=== PATIENT | male | born 1955 | race African-American/Black ===

== ENCOUNTER 2021-07-06 10:19 | Inpatient (IN) | payer MEDICARE, BC ==
[~2021-07-06] VITALS: Ht 188 cm; Wt 79.0 kg
[2021-07-06] MEDS ORDERED: PIPERACILLIN/TAZ 3.375G PREMIX 50 ML IV ONE (10:30)
[2021-07-06] MEDS ORDERED: SODIUM CHLORIDE 0.9% 1000ML BAG (SEPSIS BOLUS) IV ONE (10:30)
[2021-07-06] MEDS ORDERED: DEXTROSE 50% WATER 50ML SYRINGE IV ONE (11:15)
[2021-07-06 11:28] LABS: MEAN CORPUSCULAR HEMOGLOBIN 23.3 pg (28.0-32.0); MEAN CORPUSCULAR VOLUME 67.4 fL (80.0-94.0); PLATELET 187 x1000/uL (130-400); RED BLOOD CELL COUNT 2.88 mill/uL (4.7-6.1)
[2021-07-06 11:29] LABS: CHLORIDE 103 mEq/L (98-107)
[2021-07-06 11:33] LABS: INR 1.2; PROTHROMBIN TIME 12.3 sec (9.6-11.0)
[2021-07-06 11:37] LABS: CREATINE KINASE 303 IU/L (39-308)
[2021-07-06 11:41] LABS: HEMATOCRIT. 19.4 % (42.0-52.0); HEMOGLOBIN. 6.7 g/dL (14.0-18.0)
[2021-07-06 12:17] LABS: NUCLEATED RED BLOOD CELLS 5 /100 WBC; PLATELET ESTIMATE NORMAL
[2021-07-06 12:42] LABS: CLARITY URINE TURBID (CLEAR); KETONES URINE TRACE (NEGATIVE); LEUKOCYTE ESTERASE URINE 2+ (NEGATIVE); NITRITE URINE NEGATIVE (NEGATIVE); OCCULT BLOOD URINE 3+ (NEGATIVE); PROTEIN URINE 4+ (NEGATIVE); SPECIFIC GRAVITY URINE 1.014 (1.005-1.030)
[2021-07-06] MEDS ORDERED: ACETAMINOPHEN 325MG SUPP PR ONE (12:45)
[2021-07-06 12:46] LABS: COLOR URINE BROWN (YELLOW)
[2021-07-06] MEDS ORDERED: SODIUM CHLORIDE 0.9% 1,000 ML IV ONE (14:15)
[2021-07-06] MEDS ORDERED: ACETAMINOPHEN 650MG SUPP PR PRN (15:30)
[2021-07-06] MEDS ORDERED: DIPHENHYDRAMINE 50MG/ML VIAL IV PRN (15:30)
[2021-07-06] MEDS ORDERED: IPRATROPIUM/ALBUTEROL 0.5-3(2.5)MG/3ML NEB NEB PRN (15:30)
[2021-07-06] MEDS ORDERED: PHENYLEPHRINE 100 MG in DEXT 5% WATER 240 ML IV PRN (15:30)
[2021-07-06] MEDS ORDERED: LORAZEPAM 2MG/ML CPJ IV PRN (15:30)
[2021-07-06] MEDS ORDERED: ONDANSETRON HCL 4MG/2ML INJ IV PRN (15:30)
[2021-07-06] MEDS ORDERED: FAMOTIDINE 20MG/2ML VIAL IV SCH (16:00)
[2021-07-06 16:11] LABS: BG BASE EXCESS -6.4 mmol/L (-2.0-2.0); BG CARBOXYHEMOGLOBIN 1.2 % (0.5-1.5); BG DEOXYHEMOGLOBIN 3.3 % (0.0-5.0); BG FRACTION INSPIRED OXYGEN 21; BG HCO3 ACT 17.1 mmol/L (22.0-26.0); BG METHEMOGLOBIN 0.3 % (0.0-1.5); BG OXYGEN SATURATION 96.6 % (92.0-98.5); BG OXYHEMOGLOBIN 95.2 % (94.0-97.0); BG PCO2 26.2 mmHg (35.0-45.0); BG PH 7.433 (7.350-7.450); BG PO2 109.6 mmHg (75.0-100.0); BG TOTAL HEMOGLOBIN 6.7 g/dL (12.0-18.0); BG VENT MODE ROOM AIR
[2021-07-06] MEDS: DEXT 5%/0.45% NACL 1000ML 1,000 ML IV SCH (16:40)
[2021-07-06 16:48] LABS: TOTAL IRON BINDING CAPACITY 142 ug/dL (250-450)
[2021-07-06] MEDS ORDERED: VANCOMYCIN 1500MG in DEXTROSE 5% WATER 250ML IV NR (17:00)
[2021-07-06 17:11] LABS: CARCINO EMBRYONIC ANTIGEN 1.8 ng/ml; FERRITIN 1222 ng/mL (22-322)
[2021-07-06] MEDS: PANTOPRAZOLE SODIUM 40 MG/VIAL IV SCH (17:16)
[2021-07-06 17:29] LABS: VITAMIN B12 SERUM > 2000.0 pg/mL (211-911)
[2021-07-06] MEDS: BLOOD SUGAR DIAGNOSTIC STRIP TEST SCH ×2 (17:30→21:16)
[2021-07-06] MEDS ORDERED: PIPERACILLIN/TAZOBACTAM 3.375 G in DEXTROSE 5% WATER 50 ML IV SCH (21:00)
[2021-07-07] VITALS (53 sets, daily range): BP systolic 89–133; BP diastolic 56–88
[2021-07-07 00:36] LABS: HEMATOCRIT 24.1 % (42.0-52.0); HEMOGLOBIN 8.1 g/dL (14.0-18.0)
[2021-07-07 01:00] LABS: CREATINE KINASE 442 IU/L (39-308)
[2021-07-07 01:03] LABS: CREATINE KINASE MB FRACTION 3.4 ng/mL (0.5-3.6)
[2021-07-07] MEDS: DEXT 5%/0.45% NACL 1000ML 1,000 ML IV SCH ×3 (02:06→22:36)
[2021-07-07 05:41] LABS: HEMATOCRIT. 24.8 % (42.0-52.0); HEMOGLOBIN. 8.3 g/dL (14.0-18.0); MEAN CORPUSCULAR HEMOGLOBIN 25.5 pg (28.0-32.0); MEAN CORPUSCULAR VOLUME 76.2 fL (80.0-94.0); MEAN PLATELET VOLUME 8.7 fl (7.4-10.4); PLATELET 91 x1000/uL (130-400); RED BLOOD CELL COUNT 3.25 mill/uL (4.7-6.1); RED CELL DISTRIBUTION WIDTH 22.5 % (11.6-14.6)
[2021-07-07 05:49] LABS: CHLORIDE 112 mEq/L (98-107)
[2021-07-07 05:55] LABS: LDL CHOLESTEROL 34 mg/dL (5-100)
[2021-07-07 05:57] LABS: CREATINE KINASE 279 IU/L (39-308); CREATINE KINASE MB FRACTION 1.3 ng/mL (0.5-3.6); HDL CHOLESTEROL 8 mg/dL (40-59); T4 FREE 0.86 ng/dL (0.76-1.46)
[2021-07-07] MEDS ORDERED: NOREPINEPHRINE 8MG/250ML PMX 250 ML IV PRN (06:15)
[2021-07-07] MEDS: BLOOD SUGAR DIAGNOSTIC STRIP TEST SCH ×4 (06:34→20:43)
[2021-07-07 08:02] LABS: PLATELET ESTIMATE DECREASED
[2021-07-07] MEDS: PANTOPRAZOLE SODIUM 40 MG/VIAL IV SCH (09:10)
[2021-07-07] MEDS ORDERED: NOREPINEPHRINE 8 MG in DEXTROSE 5% WATER 250 ML IV PRN (09:45)
[2021-07-07] MEDS ORDERED: NALOXONE HCL 0.4MG/ML VIAL IV PRN (09:45)
[2021-07-07] MEDS: MORPHINE SULFATE 2 MG/ML CPJ (NOT FOR IM USE) IV PRN (10:13)
[2021-07-07] MEDS: PHENYLEPHRINE 100 MG in DEXT 5% WATER 240 ML IV PRN ×2 (10:35→22:06)
[2021-07-07] MEDS ORDERED: PIPERACILLIN/TAZOBACTAM 3.375 G in DEXTROSE 5% WATER 50 ML IV SCH (11:00)
[2021-07-07] MEDS ORDERED: DIGOXIN 500MCG/2ML AMP IV NR (12:00)
[2021-07-07 15:53] LABS: HEMATOCRIT 31.4 % (42.0-52.0); HEMOGLOBIN 9.9 g/dL (14.0-18.0)
[2021-07-07] MEDS: PIPERACILLIN/TAZOBACTAM 3.375G in DEXT 5% WATER 50ML IV SCH ×2 (16:29→22:06)
[2021-07-07] MEDS ORDERED: VANCOMYCIN 750 MG PREMIX 150 ML IV SCH ×2 (17:00)
[2021-07-08] VITALS (93 sets, daily range): BP systolic 106–137; BP diastolic 55–104
[2021-07-08 00:37] LABS: HEMATOCRIT 26.4 % (42.0-52.0); HEMOGLOBIN 8.9 g/dL (14.0-18.0)
[2021-07-08] MEDS: PIPERACILLIN/TAZOBACTAM 3.375G in DEXT 5% WATER 50ML IV SCH ×3 (05:01→23:08)
[2021-07-08] MEDS: BLOOD SUGAR DIAGNOSTIC STRIP TEST SCH ×4 (05:04→21:55)
[2021-07-08 05:48] LABS: CHLORIDE 115 mEq/L (98-107)
[2021-07-08 05:57] LABS: PHOSPHORUS 2.6 mg/dL (2.5-4.9)
[2021-07-08 06:00] LABS: CREATINE KINASE 143 IU/L (39-308)
[2021-07-08 08:06] LABS: HEMATOCRIT. 26.7 % (42.0-52.0); HEMOGLOBIN. 9.1 g/dL (14.0-18.0); MEAN CORPUSCULAR HEMOGLOBIN 25.5 pg (28.0-32.0); MEAN CORPUSCULAR VOLUME 74.5 fL (80.0-94.0); MEAN PLATELET VOLUME 8.7 fl (7.4-10.4); RED BLOOD CELL COUNT 3.59 mill/uL (4.7-6.1); RED CELL DISTRIBUTION WIDTH 23.3 % (11.6-14.6)
[2021-07-08 08:24] LABS: PLATELET 31 x1000/uL (130-400)
[2021-07-08] MEDS: DEXT 5%/0.45% NACL 1000ML 1,000 ML IV SCH ×3 (08:27→20:00)
[2021-07-08 09:06] LABS: PLATELET ESTIMATE MARKEDLY DECREASED
[2021-07-08] MEDS: PANTOPRAZOLE SODIUM 40 MG/VIAL IV SCH (09:09)
[2021-07-09] VITALS (56 sets, daily range): BP systolic 100–139; BP diastolic 62–85
[2021-07-09 05:32] LABS: HEMATOCRIT. 30.5 % (42.0-52.0); MEAN CORPUSCULAR VOLUME 76.4 fL (80.0-94.0); MEAN PLATELET VOLUME 9.2 fl (7.4-10.4)
[2021-07-09] MEDS: PIPERACILLIN/TAZOBACTAM 3.375G in DEXT 5% WATER 50ML IV SCH (05:53)
[2021-07-09] MEDS: DEXT 5%/0.45% NACL 1000ML 1,000 ML IV SCH ×2 (06:13→23:53)
[2021-07-09] MEDS: BLOOD SUGAR DIAGNOSTIC STRIP TEST SCH ×4 (06:14→20:57)
[2021-07-09 06:38] LABS: PLATELET 22 x1000/uL (130-400)
[2021-07-09] MEDS: PANTOPRAZOLE SODIUM 40 MG/VIAL IV SCH (09:09)
[2021-07-09 09:50] LABS: PLATELET ESTIMATE MARKEDLY DECREASED
[2021-07-09] MEDS ORDERED: DEXTROSE 50% WATER 50ML SYRINGE IV PRN (13:15)
[2021-07-09] MEDS ORDERED: LEVOFLOXACIN 500MG PREMIX 100 ML IV SCH (15:00)
[2021-07-09] MEDS: INSULIN LISPRO 100 UNITS/ML SUBCUT SCH ×2 (16:26→20:57)
[2021-07-09] MEDS: MORPHINE SULFATE 2 MG/ML CPJ (NOT FOR IM USE) IV PRN (21:44)
[2021-07-10] VITALS (18 sets, daily range): BP systolic 108–123; BP diastolic 67–76
[2021-07-10] MEDS: BLOOD SUGAR DIAGNOSTIC STRIP TEST SCH ×4 (06:08→21:33)
[2021-07-10] MEDS: INSULIN LISPRO 100 UNITS/ML SUBCUT SCH ×4 (07:20→21:33)
[2021-07-10 07:26] LABS: CHLORIDE 115 mEq/L (98-107)
[2021-07-10 07:33] LABS: PHOSPHORUS 2.2 mg/dL (2.5-4.9)
[2021-07-10] MEDS: PANTOPRAZOLE SODIUM 40 MG/VIAL IV SCH (07:57)
[2021-07-10 08:52] LABS: HEMATOCRIT. 27.1 % (42.0-52.0); MEAN CORPUSCULAR HEMOGLOBIN 25.1 pg (28.0-32.0); MEAN CORPUSCULAR VOLUME 75.7 fL (80.0-94.0); RED BLOOD CELL COUNT 3.58 mill/uL (4.7-6.1); RED CELL DISTRIBUTION WIDTH 23.4 % (11.6-14.6)
[2021-07-10] MEDS: DEXT 5%/0.45% NACL 1000ML 1,000 ML IV SCH ×2 (14:04→21:48)
[2021-07-10] MEDS: LEVOFLOXACIN 250MG PREMIX 50 ML IV SCH (14:04)
[2021-07-10 14:42] LABS: MEAN PLATELET VOLUME 9.6 fl (7.4-10.4); PLATELET 45 x1000/uL (130-400)
[2021-07-10 15:23] LABS: NUCLEATED RED BLOOD CELLS 3 /100 WBC; PLATELET ESTIMATE MARKEDLY DECREASED
[2021-07-10] MEDS ORDERED: POTASSIUM PHOS,M-BASIC-D-BASIC 20 MMOL in DEXT 5% WATER 243.3333 ML IV NR (16:00)
[2021-07-11] VITALS (19 sets, daily range): BP systolic 112–131; BP diastolic 65–83
[2021-07-11] MEDS: DEXT 5%/0.45% NACL 1000ML 1,000 ML IV SCH ×2 (06:12→17:31)
[2021-07-11] MEDS: BLOOD SUGAR DIAGNOSTIC STRIP TEST SCH ×4 (06:29→21:00)
[2021-07-11 06:38] LABS: BASOPHILS % 0.1 % (0.0-2.0); EOSINOPHILS % 0.5 % (0.0-5.0); HEMATOCRIT. 26.2 % (42.0-52.0); HEMOGLOBIN. 8.6 g/dL (14.0-18.0); LYMPHOCYTES % 7.3 % (20.0-50.0); MEAN PLATELET VOLUME 9.5 fl (7.4-10.4); MONOCYTES % 4.8 % (2.0-8.0); NEUTROPHILS % 87.3 % (40.0-76.0); PLATELET 72 x1000/uL (130-400); RED BLOOD CELL COUNT 3.45 mill/uL (4.7-6.1); RED CELL DISTRIBUTION WIDTH 23.8 % (11.6-14.6)
[2021-07-11 06:49] LABS: CHLORIDE 115 mEq/L (98-107)
[2021-07-11 06:55] LABS: PHOSPHORUS 2.5 mg/dL (2.5-4.9)
[2021-07-11] MEDS: INSULIN LISPRO 100 UNITS/ML SUBCUT SCH ×4 (07:20→21:00)
[2021-07-11] MEDS: PANTOPRAZOLE SODIUM 40 MG/VIAL IV SCH (07:57)
[2021-07-11] MEDS: MULTIVITAMINS,THER W-MINERALS TABLET PO SCH (14:26)
[2021-07-11] MEDS: LEVOFLOXACIN 250MG PREMIX 50 ML IV SCH (14:30)
[2021-07-11] MEDS ORDERED: LEVOFLOXACIN 250MG PREMIX 50 ML IV NR (17:00)
[2021-07-12] VITALS (11 sets, daily range): BP systolic 119–144; BP diastolic 68–84
[2021-07-12] MEDS: DEXT 5%/0.45% NACL 1000ML 1,000 ML IV SCH ×3 (02:30→23:13)
[2021-07-12] MEDS: BLOOD SUGAR DIAGNOSTIC STRIP TEST SCH ×4 (06:56→21:43)
[2021-07-12] MEDS: INSULIN LISPRO 100 UNITS/ML SUBCUT SCH ×4 (07:20→21:00)
[2021-07-12 07:42] LABS: BASOPHILS % 0.3 % (0.0-2.0); EOSINOPHILS % 0.2 % (0.0-5.0); HEMATOCRIT. 26.2 % (42.0-52.0); HEMOGLOBIN. 8.5 g/dL (14.0-18.0); LYMPHOCYTES % 7.6 % (20.0-50.0); MEAN CORPUSCULAR HEMOGLOBIN 24.8 pg (28.0-32.0); MEAN CORPUSCULAR VOLUME 76.3 fL (80.0-94.0); NEUTROPHILS % 86.9 % (40.0-76.0); PLATELET 137 x1000/uL (130-400); RED BLOOD CELL COUNT 3.44 mill/uL (4.7-6.1); RED CELL DISTRIBUTION WIDTH 23.6 % (11.6-14.6)
[2021-07-12 07:48] LABS: CHLORIDE 112 mEq/L (98-107)
[2021-07-12] MEDS: MULTIVITAMINS,THER W-MINERALS TABLET PO SCH (09:00)
[2021-07-12] MEDS: PANTOPRAZOLE SODIUM 40 MG/VIAL IV SCH (09:37)
[2021-07-12 12:05] LABS: INR 1.1; PROTHROMBIN TIME 11.3 sec (9.6-11.0)
[2021-07-12] MEDS ORDERED: MIDAZOLAM HCL 5 MG/5 ML VIAL IV PRN (13:34)
[2021-07-12] MEDS ORDERED: FENTANYL CITRATE/PF 50MCG/ML 2ML VIAL ONE (13:34)
[2021-07-12] MEDS ORDERED: MIDAZOLAM HCL 5 MG/5 ML VIAL ONE (13:34)
[2021-07-12] MEDS ORDERED: DIPHENHYDRAMINE 50MG/ML VIAL IV PRN (13:42)
[2021-07-12] MEDS ORDERED: DIPHENHYDRAMINE 50MG/ML VIAL ONE (13:49)
[2021-07-12] MEDS: LEVOFLOXACIN 500MG PREMIX 100 ML IV SCH (16:25)
[2021-07-12] MEDS: SUCRALFATE 1 G/10 ML UDC GT SCH (17:33)
[2021-07-13] VITALS (19 sets, daily range): BP systolic 97–145; BP diastolic 65–90
[2021-07-13] MEDS: SUCRALFATE 1 G/10 ML UDC GT SCH ×4 (00:37→17:08)
[2021-07-13] MEDS: METOCLOPRAMIDE HCL 10MG/2ML VIAL IV SCH ×3 (06:43→17:08)
[2021-07-13] MEDS: BLOOD SUGAR DIAGNOSTIC STRIP TEST SCH ×4 (06:52→21:00)
[2021-07-13] MEDS: INSULIN LISPRO 100 UNITS/ML SUBCUT SCH ×4 (07:20→21:00)
[2021-07-13] MEDS ORDERED: LIDOCAINE HCL 1% 20ML VIAL (Pyxis) INJ ONE (07:32)
[2021-07-13] MEDS ORDERED: IOHEXOL-300 100 ML BOTTLE ONE (07:32)
[2021-07-13] MEDS: MULTIVITAMINS,THER W-MINERALS TABLET PO SCH (09:05)
[2021-07-13] MEDS: PANTOPRAZOLE SODIUM 40 MG/VIAL IV SCH (09:05)
[2021-07-13 09:26] LABS: BASOPHILS % 0.6 % (0.0-2.0); EOSINOPHILS % 0.4 % (0.0-5.0); HEMATOCRIT. 26.9 % (42.0-52.0); HEMOGLOBIN. 8.8 g/dL (14.0-18.0); LYMPHOCYTES % 7.3 % (20.0-50.0); MEAN CORPUSCULAR HEMOGLOBIN 25.3 pg (28.0-32.0); MEAN CORPUSCULAR VOLUME 76.9 fL (80.0-94.0); MONOCYTES % 4.2 % (2.0-8.0); NEUTROPHILS % 87.5 % (40.0-76.0); PLATELET 249 x1000/uL (130-400); RED BLOOD CELL COUNT 3.49 mill/uL (4.7-6.1); RED CELL DISTRIBUTION WIDTH 23.7 % (11.6-14.6)
[2021-07-13 09:31] LABS: CHLORIDE 114 mEq/L (98-107)
[2021-07-13] MEDS: DEXT 5%/0.45% NACL 1000ML 1,000 ML IV SCH ×2 (13:16→22:41)
[2021-07-13] MEDS: LEVOFLOXACIN 500MG PREMIX 100 ML IV SCH (15:21)
[2021-07-14] VITALS (12 sets, daily range): BP systolic 110–163; BP diastolic 50–80
[2021-07-14] MEDS: SUCRALFATE 1 G/10 ML UDC GT SCH ×4 (00:34→17:52)
[2021-07-14] MEDS: METOCLOPRAMIDE HCL 10MG/2ML VIAL IV SCH ×4 (00:34→17:52)
[2021-07-14] MEDS: DEXT 5%/0.45% NACL 1000ML 1,000 ML IV SCH ×2 (05:22→17:52)
[2021-07-14] MEDS: BLOOD SUGAR DIAGNOSTIC STRIP TEST SCH ×4 (06:52→21:32)
[2021-07-14 08:43] LABS: CHLORIDE 113 mEq/L (98-107)
[2021-07-14] MEDS: PANTOPRAZOLE SODIUM 40 MG/VIAL IV SCH (08:53)
[2021-07-14] MEDS: MULTIVITAMINS,THER W-MINERALS TABLET PO SCH (08:53)
[2021-07-14] MEDS: FOLIC ACID 1MG TABLET PO SCH (08:53)
[2021-07-14] MEDS: INSULIN LISPRO 100 UNITS/ML SUBCUT SCH ×4 (08:54→21:41)
[2021-07-14] MEDS: THIAMINE HCL 100MG TABLET PO SCH (08:55)
[2021-07-14 08:59] LABS: HEMATOCRIT. 22.9 % (42.0-52.0); HEMOGLOBIN. 7.6 g/dL (14.0-18.0); MEAN CORPUSCULAR HEMOGLOBIN 25.2 pg (28.0-32.0); MEAN CORPUSCULAR VOLUME 75.5 fL (80.0-94.0); MEAN PLATELET VOLUME 8.5 fl (7.4-10.4); PLATELET 296 x1000/uL (130-400); RED BLOOD CELL COUNT 3.04 mill/uL (4.7-6.1)
[2021-07-14] MEDS ORDERED: METOPROLOL TARTRATE 25MG TABLET PO NR (15:00)
[2021-07-14] MEDS: LEVOFLOXACIN 500MG PREMIX 100 ML IV SCH (16:20)
[2021-07-14 18:05] LABS: PLATELET ESTIMATE NORMAL
[2021-07-14 19:27] LABS: HEMOGLOBIN 7.7 g/dL (14.0-18.0)
[2021-07-14] MEDS: METOPROLOL TARTRATE 25MG TABLET PO SCH (21:40)
[2021-07-15] VITALS (19 sets, daily range): BP systolic 103–131; BP diastolic 53–77
[2021-07-15] MEDS: DEXT 5%/0.45% NACL 1000ML 1,000 ML IV SCH ×3 (00:55→19:45)
[2021-07-15] MEDS: METOCLOPRAMIDE HCL 10MG/2ML VIAL IV SCH (00:55)
[2021-07-15] MEDS: SUCRALFATE 1 G/10 ML UDC GT SCH ×5 (00:55→23:51)
[2021-07-15] MEDS: BLOOD SUGAR DIAGNOSTIC STRIP TEST SCH ×4 (06:31→20:27)
[2021-07-15] MEDS: INSULIN LISPRO 100 UNITS/ML SUBCUT SCH ×4 (06:32→20:28)
[2021-07-15] MEDS: THIAMINE HCL 100MG TABLET PO SCH (08:21)
[2021-07-15] MEDS: MULTIVITAMINS,THER W-MINERALS TABLET PO SCH (08:21)
[2021-07-15] MEDS: FOLIC ACID 1MG TABLET PO SCH (08:21)
[2021-07-15] MEDS: METOPROLOL TARTRATE 25MG TABLET PO SCH ×3 (08:21→17:00)
[2021-07-15] MEDS: PANTOPRAZOLE SODIUM 40 MG/VIAL IV SCH (08:21)
[2021-07-15 08:42] LABS: HEMOGLOBIN. 7.3 g/dL (14.0-18.0); MEAN CORPUSCULAR HEMOGLOBIN 24.8 pg (28.0-32.0); MEAN CORPUSCULAR VOLUME 75.1 fL (80.0-94.0); MEAN PLATELET VOLUME 8.6 fl (7.4-10.4); PLATELET 303 x1000/uL (130-400); RED BLOOD CELL COUNT 2.93 mill/uL (4.7-6.1); RED CELL DISTRIBUTION WIDTH 23.6 % (11.6-14.6)
[2021-07-15 09:20] LABS: CHLORIDE 112 mEq/L (98-107)
[2021-07-15 14:17] LABS: PLATELET ESTIMATE NORMAL
[2021-07-15] MEDS: LEVOFLOXACIN 500MG PREMIX 100 ML IV SCH (15:44)
[2021-07-16] VITALS (12 sets, daily range): BP systolic 107–140; BP diastolic 52–77
[2021-07-16] MEDS: DEXT 5%/0.45% NACL 1000ML 1,000 ML IV SCH ×2 (05:27→16:42)
[2021-07-16] MEDS: SUCRALFATE 1 G/10 ML UDC GT SCH ×4 (05:27→23:03)
[2021-07-16] MEDS: BLOOD SUGAR DIAGNOSTIC STRIP TEST SCH ×4 (06:08→20:55)
[2021-07-16] MEDS: INSULIN LISPRO 100 UNITS/ML SUBCUT SCH ×4 (07:15→20:55)
[2021-07-16 07:33] LABS: BASOPHILS % 0.3 % (0.0-2.0); EOSINOPHILS % 2.7 % (0.0-5.0); HEMATOCRIT. 23.7 % (42.0-52.0); HEMOGLOBIN. 7.9 g/dL (14.0-18.0); LYMPHOCYTES % 9.1 % (20.0-50.0); MEAN CORPUSCULAR HEMOGLOBIN 25.9 pg (28.0-32.0); MEAN CORPUSCULAR VOLUME 77.8 fL (80.0-94.0); MEAN PLATELET VOLUME 8.5 fl (7.4-10.4); NEUTROPHILS % 76.9 % (40.0-76.0); PLATELET 278 x1000/uL (130-400); RED BLOOD CELL COUNT 3.05 mill/uL (4.7-6.1); RED CELL DISTRIBUTION WIDTH 23.9 % (11.6-14.6)
[2021-07-16] MEDS: THIAMINE HCL 100MG TABLET PO SCH (08:50)
[2021-07-16] MEDS: METOPROLOL TARTRATE 25MG TABLET PO SCH ×3 (08:50→17:22)
[2021-07-16] MEDS: MULTIVITAMINS,THER W-MINERALS TABLET PO SCH (08:50)
[2021-07-16] MEDS: FOLIC ACID 1MG TABLET PO SCH (08:50)
[2021-07-16] MEDS: PANTOPRAZOLE SODIUM 40 MG/VIAL IV SCH (08:50)
[2021-07-16 13:07] LABS: CHLORIDE 110 mEq/L (98-107)
[2021-07-16] MEDS: LEVOFLOXACIN 500MG PREMIX 100 ML IV SCH (17:23)
[2021-07-16] MEDS ORDERED: FUROSEMIDE 40MG/4ML VIAL IVP NR (20:00)
[2021-07-17] VITALS (12 sets, daily range): BP systolic 111–133; BP diastolic 57–78
[2021-07-17] MEDS: DEXT 5%/0.45% NACL 1000ML 1,000 ML IV SCH ×3 (02:09→20:47)
[2021-07-17] MEDS: SUCRALFATE 1 G/10 ML UDC GT SCH ×3 (05:04→17:27)
[2021-07-17] MEDS: BLOOD SUGAR DIAGNOSTIC STRIP TEST SCH ×4 (06:04→20:50)
[2021-07-17] MEDS: INSULIN LISPRO 100 UNITS/ML SUBCUT SCH ×4 (06:22→20:52)
[2021-07-17 07:06] LABS: CHLORIDE 107 mEq/L (98-107)
[2021-07-17 07:08] LABS: HEMATOCRIT. 23.6 % (42.0-52.0); MEAN CORPUSCULAR HEMOGLOBIN 25.6 pg (28.0-32.0); MEAN CORPUSCULAR VOLUME 75.8 fL (80.0-94.0); MEAN PLATELET VOLUME 8.4 fl (7.4-10.4); PLATELET 269 x1000/uL (130-400); RED BLOOD CELL COUNT 3.11 mill/uL (4.7-6.1); RED CELL DISTRIBUTION WIDTH 23.9 % (11.6-14.6)
[2021-07-17] MEDS: PANTOPRAZOLE SODIUM 40 MG/VIAL IV SCH (10:36)
[2021-07-17] MEDS: FOLIC ACID 1MG TABLET PO SCH (10:36)
[2021-07-17] MEDS: THIAMINE HCL 100MG TABLET PO SCH (10:36)
[2021-07-17] MEDS: MULTIVITAMINS,THER W-MINERALS TABLET PO SCH (10:36)
[2021-07-17] MEDS: METOPROLOL TARTRATE 25MG TABLET PO SCH ×3 (10:37→17:27)
[2021-07-17 14:19] LABS: PLATELET ESTIMATE NORMAL
[2021-07-17] MEDS: SIMETHICONE 80MG TABLET CHEW PO PRN (17:27)
[2021-07-17] MEDS: METRONIDAZOLE 500MG TABLET PO SCH (17:28)
[2021-07-17] MEDS: LEVOFLOXACIN 500MG PREMIX 100 ML IV SCH (17:29)
[2021-07-18] VITALS (12 sets, daily range): BP systolic 100–145; BP diastolic 57–81
[2021-07-18] MEDS: SUCRALFATE 1 G/10 ML UDC GT SCH ×4 (00:14→18:07)
[2021-07-18] MEDS: METRONIDAZOLE 500MG TABLET PO SCH ×3 (00:14→18:07)
[2021-07-18] MEDS: DEXT 5%/0.45% NACL 1000ML 1,000 ML IV SCH (06:27)
[2021-07-18 06:52] LABS: HEMOGLOBIN. 7.9 g/dL (14.0-18.0); MEAN CORPUSCULAR VOLUME 75.8 fL (80.0-94.0); MEAN PLATELET VOLUME 8.1 fl (7.4-10.4); PLATELET 280 x1000/uL (130-400); RED BLOOD CELL COUNT 3.17 mill/uL (4.7-6.1); RED CELL DISTRIBUTION WIDTH 24.1 % (11.6-14.6)
[2021-07-18 07:18] LABS: CHLORIDE 107 mEq/L (98-107)
[2021-07-18] MEDS: INSULIN LISPRO 100 UNITS/ML SUBCUT SCH ×4 (07:20→21:00)
[2021-07-18] MEDS: BLOOD SUGAR DIAGNOSTIC STRIP TEST SCH ×4 (07:25→21:00)
[2021-07-18] MEDS: THIAMINE HCL 100MG TABLET PO SCH (09:15)
[2021-07-18] MEDS: PANTOPRAZOLE SODIUM 40 MG/VIAL IV SCH (09:15)
[2021-07-18] MEDS: MULTIVITAMINS,THER W-MINERALS TABLET PO SCH (09:15)
[2021-07-18] MEDS: FOLIC ACID 1MG TABLET PO SCH (09:15)
[2021-07-18] MEDS: METOPROLOL TARTRATE 25MG TABLET PO SCH ×3 (09:16→18:08)
[2021-07-18] MEDS: LEVOFLOXACIN 500MG TABLET PO SCH (13:38)
[2021-07-18] MEDS ORDERED: FUROSEMIDE 20MG/2ML VIAL IVP NR (16:45)
[2021-07-18 17:50] LABS: PLATELET ESTIMATE NORMAL
[2021-07-18] MEDS: LEVOFLOXACIN 500MG PREMIX 100 ML IV SCH (18:08)
[2021-07-19] VITALS (11 sets, daily range): BP systolic 102–131; BP diastolic 57–80
[2021-07-19] MEDS: SUCRALFATE 1 G/10 ML UDC GT SCH ×4 (00:48→18:16)
[2021-07-19] MEDS: METRONIDAZOLE 500MG TABLET PO SCH ×3 (00:49→18:18)
[2021-07-19] MEDS: BLOOD SUGAR DIAGNOSTIC STRIP TEST SCH ×4 (06:53→21:12)
[2021-07-19] MEDS: INSULIN LISPRO 100 UNITS/ML SUBCUT SCH ×4 (07:20→21:00)
[2021-07-19] MEDS: METOPROLOL TARTRATE 25MG TABLET PO SCH ×3 (09:00→18:18)
[2021-07-19] MEDS: MULTIVITAMINS,THER W-MINERALS TABLET PO SCH (09:25)
[2021-07-19] MEDS: THIAMINE HCL 100MG TABLET PO SCH (09:25)
[2021-07-19] MEDS: PANTOPRAZOLE SODIUM 40 MG/VIAL IV SCH (09:25)
[2021-07-19] MEDS: FOLIC ACID 1MG TABLET PO SCH (09:25)
[2021-07-19 10:55] LABS: HEMATOCRIT. 26.2 % (42.0-52.0); HEMOGLOBIN. 8.6 g/dL (14.0-18.0); MEAN CORPUSCULAR HEMOGLOBIN 24.8 pg (28.0-32.0); MEAN CORPUSCULAR VOLUME 75.8 fL (80.0-94.0); MEAN PLATELET VOLUME 8.1 fl (7.4-10.4); PLATELET 300 x1000/uL (130-400); RED BLOOD CELL COUNT 3.46 mill/uL (4.7-6.1)
[2021-07-19] MEDS: LEVOFLOXACIN 500MG TABLET PO SCH (11:00)
[2021-07-19 11:52] LABS: PLATELET ESTIMATE NORMAL
[2021-07-20] VITALS (13 sets, daily range): BP systolic 104–123; BP diastolic 55–74
[2021-07-20] MEDS: SUCRALFATE 1 G/10 ML UDC GT SCH ×5 (00:13→23:46)
[2021-07-20] MEDS: METRONIDAZOLE 500MG TABLET PO SCH ×3 (00:14→17:44)
[2021-07-20] MEDS: BLOOD SUGAR DIAGNOSTIC STRIP TEST SCH ×4 (06:22→21:01)
[2021-07-20] MEDS: INSULIN LISPRO 100 UNITS/ML SUBCUT SCH ×4 (06:40→21:00)
[2021-07-20] MEDS: THIAMINE HCL 100MG TABLET PO SCH (08:51)
[2021-07-20] MEDS: PANTOPRAZOLE SODIUM 40 MG/VIAL IV SCH (08:51)
[2021-07-20 08:52] LABS: BASOPHILS % 0.7 % (0.0-2.0); EOSINOPHILS % 0.1 % (0.0-5.0); HEMATOCRIT. 24.9 % (42.0-52.0); HEMOGLOBIN. 8.1 g/dL (14.0-18.0); MEAN CORPUSCULAR HEMOGLOBIN 24.8 pg (28.0-32.0); MEAN CORPUSCULAR VOLUME 76.2 fL (80.0-94.0); MEAN PLATELET VOLUME 8.2 fl (7.4-10.4); MONOCYTES % 11.2 % (2.0-8.0); PLATELET 289 x1000/uL (130-400); RED BLOOD CELL COUNT 3.26 mill/uL (4.7-6.1); RED CELL DISTRIBUTION WIDTH 24.1 % (11.6-14.6)
[2021-07-20] MEDS: FOLIC ACID 1MG TABLET PO SCH (08:52)
[2021-07-20] MEDS: METOPROLOL TARTRATE 25MG TABLET PO SCH ×3 (08:52→17:00)
[2021-07-20] MEDS: MULTIVITAMINS,THER W-MINERALS TABLET PO SCH (08:52)
[2021-07-20 08:58] LABS: CHLORIDE 108 mEq/L (98-107)
[2021-07-21] VITALS (11 sets, daily range): BP systolic 111–127; BP diastolic 60–81
[2021-07-21] MEDS: METRONIDAZOLE 500MG TABLET PO SCH ×3 (00:32→17:08)
[2021-07-21] MEDS: SUCRALFATE 1 G/10 ML UDC GT SCH ×3 (06:48→17:08)
[2021-07-21] MEDS: BLOOD SUGAR DIAGNOSTIC STRIP TEST SCH ×4 (06:57→21:40)
[2021-07-21] MEDS: INSULIN LISPRO 100 UNITS/ML SUBCUT SCH ×4 (07:20→21:00)
[2021-07-21] MEDS: PANTOPRAZOLE SODIUM 40 MG/VIAL IV SCH (09:12)
[2021-07-21] MEDS: FOLIC ACID 1MG TABLET PO SCH (09:13)
[2021-07-21] MEDS: THIAMINE HCL 100MG TABLET PO SCH (09:13)
[2021-07-21] MEDS: MULTIVITAMINS,THER W-MINERALS TABLET PO SCH (09:13)
[2021-07-21] MEDS: METOPROLOL TARTRATE 25MG TABLET PO SCH ×3 (09:13→17:08)
[2021-07-21] MEDS: ACYCLOVIR 400 MG TABLET PEG SCH (17:38)
[2021-07-22] VITALS (12 sets, daily range): BP systolic 103–138; BP diastolic 62–83
[2021-07-22] MEDS: SUCRALFATE 1 G/10 ML UDC GT SCH ×5 (00:17→23:41)
[2021-07-22] MEDS: METRONIDAZOLE 500MG TABLET PO SCH ×3 (00:17→18:16)
[2021-07-22] MEDS: BLOOD SUGAR DIAGNOSTIC STRIP TEST SCH ×4 (05:24→21:11)
[2021-07-22] MEDS: INSULIN LISPRO 100 UNITS/ML SUBCUT SCH ×4 (06:49→21:00)
[2021-07-22] MEDS: FOLIC ACID 1MG TABLET PO SCH (09:48)
[2021-07-22] MEDS: ACYCLOVIR 400 MG TABLET PEG SCH ×3 (09:50→18:16)
[2021-07-22] MEDS: METOPROLOL TARTRATE 25MG TABLET PO SCH ×3 (09:50→17:00)
[2021-07-22] MEDS: PANTOPRAZOLE SODIUM 40 MG/VIAL IV SCH (09:50)
[2021-07-22] MEDS: MULTIVITAMINS,THER W-MINERALS TABLET PO SCH (09:50)
[2021-07-22] MEDS: THIAMINE HCL 100MG TABLET PO SCH (09:50)
[2021-07-23] VITALS (13 sets, daily range): BP systolic 96–128; BP diastolic 63–75
[2021-07-23] MEDS: BLOOD SUGAR DIAGNOSTIC STRIP TEST SCH ×4 (05:52→21:14)
[2021-07-23] MEDS: INSULIN LISPRO 100 UNITS/ML SUBCUT SCH ×4 (05:52→21:00)
[2021-07-23] MEDS: SUCRALFATE 1 G/10 ML UDC GT SCH ×4 (05:52→23:47)
[2021-07-23] MEDS: METOPROLOL TARTRATE 25MG TABLET PO SCH ×3 (08:25→17:06)
[2021-07-23] MEDS: FOLIC ACID 1MG TABLET PO SCH (08:25)
[2021-07-23] MEDS: MULTIVITAMINS,THER W-MINERALS TABLET PO SCH (08:25)
[2021-07-23] MEDS: PANTOPRAZOLE SODIUM 40 MG/VIAL IV SCH (08:25)
[2021-07-23] MEDS: THIAMINE HCL 100MG TABLET PO SCH (08:25)
[2021-07-23] MEDS: ACYCLOVIR 400 MG TABLET PEG SCH ×3 (08:26→17:06)
[2021-07-24] VITALS (12 sets, daily range): BP systolic 93–138; BP diastolic 60–90
[2021-07-24] MEDS: BLOOD SUGAR DIAGNOSTIC STRIP TEST SCH ×4 (06:30→21:10)
[2021-07-24] MEDS: INSULIN LISPRO 100 UNITS/ML SUBCUT SCH ×4 (06:30→21:00)
[2021-07-24] MEDS: SUCRALFATE 1 G/10 ML UDC GT SCH ×3 (06:31→17:28)
[2021-07-24] MEDS: THIAMINE HCL 100MG TABLET PO SCH (09:48)
[2021-07-24] MEDS: ZINC SULFATE 220 MG ( 50 ) CAPSULE PO SCH (09:48)
[2021-07-24] MEDS: SIMETHICONE 80MG TABLET CHEW PO PRN (09:48)
[2021-07-24] MEDS: METOPROLOL TARTRATE 25MG TABLET PO SCH ×3 (09:48→17:28)
[2021-07-24] MEDS: PANTOPRAZOLE SODIUM 40 MG/VIAL IV SCH (09:48)
[2021-07-24] MEDS: ASCORBIC ACID 500 MG TABLET PO SCH (09:49)
[2021-07-24] MEDS: FOLIC ACID 1MG TABLET PO SCH (09:49)
[2021-07-24] MEDS: MULTIVITAMINS,THER W-MINERALS TABLET PO SCH (09:49)
[2021-07-24] MEDS: ACYCLOVIR 400 MG TABLET PEG SCH ×3 (09:50→17:27)
[2021-07-24 12:44] LABS: HEMATOCRIT 22.4 % (42.0-52.0); HEMOGLOBIN 7.2 g/dL (14.0-18.0); MEAN CORPUSCULAR HEMOGLOBIN 24.5 pg (28.0-32.0); PLATELET 351 x1000/uL (130-400); RED BLOOD CELL COUNT 2.94 mill/uL (4.7-6.1)
[2021-07-24 12:56] LABS: CHLORIDE 106 mEq/L (98-107)
[2021-07-25] VITALS (15 sets, daily range): BP systolic 106–125; BP diastolic 67–75
[2021-07-25] MEDS: SUCRALFATE 1 G/10 ML UDC GT SCH ×5 (00:37→23:48)
[2021-07-25] MEDS: BLOOD SUGAR DIAGNOSTIC STRIP TEST SCH ×4 (05:30→21:39)
[2021-07-25] MEDS: INSULIN LISPRO 100 UNITS/ML SUBCUT SCH ×4 (05:37→21:00)
[2021-07-25] MEDS: PANTOPRAZOLE SODIUM 40 MG/VIAL IV SCH (09:58)
[2021-07-25] MEDS: MULTIVITAMINS,THER W-MINERALS TABLET PO SCH (09:58)
[2021-07-25] MEDS: THIAMINE HCL 100MG TABLET PO SCH (09:58)
[2021-07-25] MEDS: ZINC SULFATE 220 MG ( 50 ) CAPSULE PO SCH (09:58)
[2021-07-25] MEDS: ACYCLOVIR 400 MG TABLET PEG SCH ×3 (09:58→17:50)
[2021-07-25] MEDS: METOPROLOL TARTRATE 25MG TABLET PO SCH ×3 (09:59→17:00)
[2021-07-25] MEDS: FOLIC ACID 1MG TABLET PO SCH (10:02)
[2021-07-25] MEDS: ASCORBIC ACID 500 MG TABLET PO SCH (10:02)
[2021-07-25] MEDS ORDERED: CEFTRIAXONE 1 G PREMIX 50 ML IV SCH (11:30)
[2021-07-25 12:31] LABS: CHLORIDE 106 mEq/L (98-107)
[2021-07-25 12:32] LABS: BASOPHILS % 0.4 % (0.0-2.0); EOSINOPHILS % 0.6 % (0.0-5.0); LYMPHOCYTES % 9.8 % (20.0-50.0); MEAN CORPUSCULAR HEMOGLOBIN 24.7 pg (28.0-32.0); MEAN CORPUSCULAR VOLUME 75.1 fL (80.0-94.0); MEAN PLATELET VOLUME 8.1 fl (7.4-10.4); NEUTROPHILS % 80.2 % (40.0-76.0); PLATELET 379 x1000/uL (130-400); RED BLOOD CELL COUNT 2.61 mill/uL (4.7-6.1)
[2021-07-25 12:40] LABS: HEMATOCRIT. 19.6 % (42.0-52.0); HEMOGLOBIN. 6.4 g/dL (14.0-18.0)
[2021-07-25] MEDS: SODIUM CHLORIDE 0.9% 1,000 ML IV SCH (12:44)
[2021-07-25] MEDS: CEFTRIAXONE 1,000 MG in DEXTROSE 5% WATER 50 ML IV SCH (13:41)
[2021-07-25 21:54] LABS: HEMATOCRIT 24.5 % (42.0-52.0); HEMOGLOBIN 8.4 g/dL (14.0-18.0)
[2021-07-26] VITALS (10 sets, daily range): BP systolic 108–130; BP diastolic 51–96
[2021-07-26] MEDS: SUCRALFATE 1 G/10 ML UDC GT SCH ×4 (05:21→23:21)
[2021-07-26] MEDS: BLOOD SUGAR DIAGNOSTIC STRIP TEST SCH ×4 (05:52→21:05)
[2021-07-26 07:00] LABS: BASOPHILS % 0.5 % (0.0-2.0); EOSINOPHILS % 0.9 % (0.0-5.0); HEMATOCRIT. 24.1 % (42.0-52.0); LYMPHOCYTES % 10.3 % (20.0-50.0); MEAN CORPUSCULAR HEMOGLOBIN 26.1 pg (28.0-32.0); MEAN CORPUSCULAR VOLUME 77.9 fL (80.0-94.0); MEAN PLATELET VOLUME 8.3 fl (7.4-10.4); NEUTROPHILS % 80.3 % (40.0-76.0); PLATELET 377 x1000/uL (130-400); RED BLOOD CELL COUNT 3.09 mill/uL (4.7-6.1); RED CELL DISTRIBUTION WIDTH 23.2 % (11.6-14.6)
[2021-07-26] MEDS: INSULIN LISPRO 100 UNITS/ML SUBCUT SCH ×4 (07:20→21:00)
[2021-07-26 07:23] LABS: CHLORIDE 106 mEq/L (98-107)
[2021-07-26] MEDS: SODIUM CHLORIDE 0.9% 1,000 ML IV SCH (08:26)
[2021-07-26] MEDS: THIAMINE HCL 100MG TABLET PO SCH (09:36)
[2021-07-26] MEDS: FOLIC ACID 1MG TABLET PO SCH (09:36)
[2021-07-26] MEDS: MULTIVITAMINS,THER W-MINERALS TABLET PO SCH (09:36)
[2021-07-26] MEDS: ASCORBIC ACID 500 MG TABLET PO SCH (09:36)
[2021-07-26] MEDS: METOPROLOL TARTRATE 25MG TABLET PO SCH ×3 (09:36→17:13)
[2021-07-26] MEDS: ZINC SULFATE 220 MG ( 50 ) CAPSULE PO SCH (09:36)
[2021-07-26] MEDS: ACYCLOVIR 400 MG TABLET PEG SCH ×3 (09:36→17:13)
[2021-07-26] MEDS: PANTOPRAZOLE SODIUM 40 MG/VIAL IV SCH (09:36)
[2021-07-26] MEDS: CEFTRIAXONE 1,000 MG in DEXTROSE 5% WATER 50 ML IV SCH (12:12)
[2021-07-27] VITALS (18 sets, daily range): BP systolic 104–124; BP diastolic 60–77
[2021-07-27] MEDS: SODIUM CHLORIDE 0.9% 1,000 ML IV SCH (03:11)
[2021-07-27] MEDS: BLOOD SUGAR DIAGNOSTIC STRIP TEST SCH ×4 (05:59→21:36)
[2021-07-27] MEDS: SUCRALFATE 1 G/10 ML UDC GT SCH ×4 (05:59→23:58)
[2021-07-27] MEDS: INSULIN LISPRO 100 UNITS/ML SUBCUT SCH ×4 (07:20→21:00)
[2021-07-27] MEDS: ZINC SULFATE 220 MG ( 50 ) CAPSULE PO SCH (09:17)
[2021-07-27] MEDS: PANTOPRAZOLE SODIUM 40 MG/VIAL IV SCH (09:17)
[2021-07-27] MEDS: ASCORBIC ACID 500 MG TABLET PO SCH (09:17)
[2021-07-27] MEDS: METOPROLOL TARTRATE 25MG TABLET PO SCH ×3 (09:18→17:55)
[2021-07-27] MEDS: ACYCLOVIR 400 MG TABLET PEG SCH ×3 (09:18→17:56)
[2021-07-27] MEDS: MULTIVITAMINS,THER W-MINERALS TABLET PO SCH (09:18)
[2021-07-27] MEDS: THIAMINE HCL 100MG TABLET PO SCH (09:18)
[2021-07-27] MEDS: FOLIC ACID 1MG TABLET PO SCH (09:18)
[2021-07-27] MEDS ORDERED: FUROSEMIDE 20MG/2ML VIAL IVP NR (12:30)
[2021-07-27] MEDS: CEFTRIAXONE 1,000 MG in DEXTROSE 5% WATER 50 ML IV SCH (12:50)
[2021-07-27] MEDS ORDERED: KCL 20MEQ/100ML PREMIX 100 ML IV NR (14:00)
[2021-07-28] VITALS (14 sets, daily range): BP systolic 112–140; BP diastolic 65–79
[2021-07-28 00:41] LABS: CHLORIDE 108 mEq/L (98-107)
[2021-07-28 00:46] LABS: HEMOGLOBIN 7.1 g/dL (14.0-18.0); MEAN CORPUSCULAR HEMOGLOBIN 26.3 pg (28.0-32.0); PLATELET 468 x1000/uL (130-400); RED CELL DISTRIBUTION WIDTH 24.1 % (11.6-14.6)
[2021-07-28 00:52] LABS: HEMATOCRIT 20.8 % (42.0-52.0)
[2021-07-28] MEDS: SUCRALFATE 1 G/10 ML UDC GT SCH ×3 (05:17→18:20)
[2021-07-28] MEDS: BLOOD SUGAR DIAGNOSTIC STRIP TEST SCH ×4 (06:49→21:00)
[2021-07-28] MEDS: INSULIN LISPRO 100 UNITS/ML SUBCUT SCH ×4 (07:20→21:00)
[2021-07-28 08:39] LABS: CHLORIDE 107 mEq/L (98-107)
[2021-07-28 09:07] LABS: BASOPHILS % 0.3 % (0.0-2.0); EOSINOPHILS % 0.7 % (0.0-5.0); HEMATOCRIT. 28.8 % (42.0-52.0); HEMOGLOBIN. 9.5 g/dL (14.0-18.0); LYMPHOCYTES % 8.2 % (20.0-50.0); MEAN CORPUSCULAR HEMOGLOBIN 26.6 pg (28.0-32.0); MEAN CORPUSCULAR VOLUME 80.5 fL (80.0-94.0); MEAN PLATELET VOLUME 7.9 fl (7.4-10.4); MONOCYTES % 7.2 % (2.0-8.0); NEUTROPHILS % 83.6 % (40.0-76.0); PLATELET 511 x1000/uL (130-400); RED BLOOD CELL COUNT 3.58 mill/uL (4.7-6.1)
[2021-07-28] MEDS: ZINC SULFATE 220 MG ( 50 ) CAPSULE PO SCH (10:02)
[2021-07-28] MEDS: ASCORBIC ACID 500 MG TABLET PO SCH (10:03)
[2021-07-28] MEDS: PANTOPRAZOLE SODIUM 40 MG/VIAL IV SCH (10:03)
[2021-07-28] MEDS: FOLIC ACID 1MG TABLET PO SCH (10:03)
[2021-07-28] MEDS: THIAMINE HCL 100MG TABLET PO SCH (10:03)
[2021-07-28] MEDS: METOPROLOL TARTRATE 25MG TABLET PO SCH ×3 (10:03→17:00)
[2021-07-28] MEDS: MULTIVITAMINS,THER W-MINERALS TABLET PO SCH (10:03)
[2021-07-28] MEDS: ACYCLOVIR 400 MG TABLET PEG SCH ×3 (10:04→17:00)
[2021-07-28 13:06] LABS: PLATELET ESTIMATE INCREASED
[2021-07-28] MEDS: CEFTRIAXONE 1,000 MG in DEXTROSE 5% WATER 50 ML IV SCH (16:02)
[2021-07-29] VITALS (7 sets, daily range): BP systolic 104–127; BP diastolic 60–69
[2021-07-29] MEDS: SUCRALFATE 1 G/10 ML UDC GT SCH ×5 (01:15→23:12)
[2021-07-29] MEDS: BLOOD SUGAR DIAGNOSTIC STRIP TEST SCH ×4 (07:06→21:00)
[2021-07-29] MEDS: INSULIN LISPRO 100 UNITS/ML SUBCUT SCH ×4 (07:06→21:00)
[2021-07-29 07:24] LABS: HEMATOCRIT. 28.5 % (42.0-52.0); HEMOGLOBIN. 9.4 g/dL (14.0-18.0); MEAN CORPUSCULAR HEMOGLOBIN 26.7 pg (28.0-32.0); MEAN CORPUSCULAR VOLUME 81.1 fL (80.0-94.0); MEAN PLATELET VOLUME 7.9 fl (7.4-10.4); PLATELET 495 x1000/uL (130-400); RED BLOOD CELL COUNT 3.51 mill/uL (4.7-6.1); RED CELL DISTRIBUTION WIDTH 22.9 % (11.6-14.6)
[2021-07-29] MEDS: MULTIVITAMINS,THER W-MINERALS TABLET PO SCH (08:37)
[2021-07-29] MEDS: FOLIC ACID 1MG TABLET PO SCH (08:38)
[2021-07-29] MEDS: METOPROLOL TARTRATE 25MG TABLET PO SCH ×3 (08:38→17:00)
[2021-07-29] MEDS: THIAMINE HCL 100MG TABLET PO SCH (08:38)
[2021-07-29] MEDS: ASCORBIC ACID 500 MG TABLET PO SCH (08:38)
[2021-07-29] MEDS: ZINC SULFATE 220 MG ( 50 ) CAPSULE PO SCH (08:38)
[2021-07-29] MEDS: ACYCLOVIR 400 MG TABLET PEG SCH ×3 (08:39→17:46)
[2021-07-29] MEDS: PANTOPRAZOLE SODIUM 40 MG/VIAL IV SCH (08:41)
[2021-07-29 08:43] LABS: CHLORIDE 108 mEq/L (98-107)
[2021-07-29 11:41] LABS: ATYPICAL LYMPHOCYTES 1; NUCLEATED RED BLOOD CELLS 1 /100 WBC
[2021-07-29 11:42] LABS: PLATELET ESTIMATE INCREASED
[2021-07-29 13:25] LABS: CLARITY URINE TURBID (CLEAR); COLOR URINE RED (YELLOW); KETONES URINE NEGATIVE (NEGATIVE); LEUKOCYTE ESTERASE URINE 3+ (NEGATIVE); NITRITE URINE NEGATIVE (NEGATIVE); OCCULT BLOOD URINE 3+ (NEGATIVE); PROTEIN URINE 3+ (NEGATIVE); SPECIFIC GRAVITY URINE 1.018 (1.005-1.030); UROBILINOGEN URINE 0.2 E.U./dL (0.2-1.0)
[2021-07-29] MEDS: LEVOFLOXACIN 500MG PREMIX 100 ML IV SCH (13:41)
[2021-07-30] VITALS (8 sets, daily range): BP systolic 108–130; BP diastolic 60–70
[2021-07-30] MEDS: SUCRALFATE 1 G/10 ML UDC GT SCH ×4 (05:23→23:20)
[2021-07-30 06:24] LABS: HEMATOCRIT. 22.6 % (42.0-52.0); HEMOGLOBIN. 7.6 g/dL (14.0-18.0); MEAN CORPUSCULAR VOLUME 80.2 fL (80.0-94.0); MEAN PLATELET VOLUME 7.7 fl (7.4-10.4); PLATELET 428 x1000/uL (130-400); RED BLOOD CELL COUNT 2.82 mill/uL (4.7-6.1); RED CELL DISTRIBUTION WIDTH 22.5 % (11.6-14.6)
[2021-07-30 06:45] LABS: CHLORIDE 108 mEq/L (98-107)
[2021-07-30] MEDS: BLOOD SUGAR DIAGNOSTIC STRIP TEST SCH ×4 (07:20→20:22)
[2021-07-30] MEDS: INSULIN LISPRO 100 UNITS/ML SUBCUT SCH ×4 (07:50→20:22)
[2021-07-30] MEDS: ZINC SULFATE 220 MG ( 50 ) CAPSULE PO SCH (09:20)
[2021-07-30] MEDS: MULTIVITAMINS,THER W-MINERALS TABLET PO SCH (09:20)
[2021-07-30] MEDS: ASCORBIC ACID 500 MG TABLET PO SCH (09:20)
[2021-07-30] MEDS: PANTOPRAZOLE SODIUM 40 MG/VIAL IV SCH (09:20)
[2021-07-30] MEDS: THIAMINE HCL 100MG TABLET PO SCH (09:21)
[2021-07-30] MEDS: METOPROLOL TARTRATE 25MG TABLET PO SCH ×3 (09:21→17:00)
[2021-07-30] MEDS: FOLIC ACID 1MG TABLET PO SCH (09:21)
[2021-07-30] MEDS: ACYCLOVIR 400 MG TABLET PEG SCH ×3 (09:27→17:43)
[2021-07-30] MEDS: LEVOFLOXACIN 500MG PREMIX 100 ML IV SCH (12:17)
[2021-07-30 16:42] LABS: PLATELET ESTIMATE INCREASED
[2021-07-30] MEDS: LINEZOLID 600MG TABLET PO SCH (23:20)
[2021-07-31] VITALS (9 sets, daily range): BP systolic 109–141; BP diastolic 67–90
[2021-07-31] MEDS: SUCRALFATE 1 G/10 ML UDC GT SCH ×3 (05:53→18:42)
[2021-07-31 06:54] LABS: BASOPHILS % 0.3 % (0.0-2.0); HEMATOCRIT. 28.2 % (42.0-52.0); HEMOGLOBIN. 9.5 g/dL (14.0-18.0); LYMPHOCYTES % 8.6 % (20.0-50.0); MEAN CORPUSCULAR HEMOGLOBIN 27.7 pg (28.0-32.0); MEAN CORPUSCULAR VOLUME 82.1 fL (80.0-94.0); MONOCYTES % 9.3 % (2.0-8.0); NEUTROPHILS % 80.8 % (40.0-76.0); PLATELET 403 x1000/uL (130-400); RED BLOOD CELL COUNT 3.44 mill/uL (4.7-6.1); RED CELL DISTRIBUTION WIDTH 20.8 % (11.6-14.6)
[2021-07-31] MEDS: BLOOD SUGAR DIAGNOSTIC STRIP TEST SCH ×4 (07:01→20:38)
[2021-07-31 07:06] LABS: CHLORIDE 105 mEq/L (98-107)
[2021-07-31] MEDS: INSULIN LISPRO 100 UNITS/ML SUBCUT SCH ×4 (07:50→20:39)
[2021-07-31] MEDS: PANTOPRAZOLE SODIUM 40 MG/VIAL IV SCH (09:03)
[2021-07-31] MEDS: LINEZOLID 600MG TABLET PO SCH ×2 (09:03→22:42)
[2021-07-31] MEDS: MULTIVITAMINS,THER W-MINERALS TABLET PO SCH (09:03)
[2021-07-31] MEDS: ASCORBIC ACID 500 MG TABLET PO SCH (09:04)
[2021-07-31] MEDS: ZINC SULFATE 220 MG ( 50 ) CAPSULE PO SCH (09:04)
[2021-07-31] MEDS: THIAMINE HCL 100MG TABLET PO SCH (09:04)
[2021-07-31] MEDS: METOPROLOL TARTRATE 25MG TABLET PO SCH ×5 (09:08→18:39)
[2021-07-31] MEDS: ACYCLOVIR 400 MG TABLET PEG SCH ×3 (09:36→18:39)
[2021-07-31] MEDS: FOLIC ACID 1MG TABLET PO SCH (10:55)
[2021-07-31] MEDS ORDERED: MORPHINE SULFATE 2 MG/ML CPJ (NOT FOR IM USE) IV NR (12:51)
[2021-07-31] MEDS: LEVOFLOXACIN 500MG PREMIX 100 ML IV SCH (12:52)
[2021-07-31] MEDS ORDERED: HYDROCODONE/ACETAMINOPHEN 10/325MG TABLET PO PRN (18:30)
[2021-08-01] VITALS: BP 106/66
[2021-08-01 04:00] VITALS: BP 111/68
[2021-08-01] MEDS: SUCRALFATE 1 G/10 ML UDC GT SCH ×4 (06:08→23:10)
[2021-08-01 07:25] LABS: BASOPHILS % 0.4 % (0.0-2.0); EOSINOPHILS % 0.7 % (0.0-5.0); HEMOGLOBIN. 9.5 g/dL (14.0-18.0); LYMPHOCYTES % 8.4 % (20.0-50.0); MEAN CORPUSCULAR HEMOGLOBIN 27.2 pg (28.0-32.0); MEAN CORPUSCULAR VOLUME 80.3 fL (80.0-94.0); MEAN PLATELET VOLUME 7.4 fl (7.4-10.4); MONOCYTES % 9.2 % (2.0-8.0); NEUTROPHILS % 81.3 % (40.0-76.0); PLATELET 391 x1000/uL (130-400); RED BLOOD CELL COUNT 3.49 mill/uL (4.7-6.1)
[2021-08-01 07:31] LABS: CHLORIDE 104 mEq/L (98-107)
[2021-08-01] MEDS: INSULIN LISPRO 100 UNITS/ML SUBCUT SCH ×4 (07:50→21:00)
[2021-08-01 08:00] VITALS: BP 121/70
[2021-08-01] MEDS: BLOOD SUGAR DIAGNOSTIC STRIP TEST SCH ×4 (08:08→21:01)
[2021-08-01] MEDS: ASCORBIC ACID 500 MG TABLET PO SCH (10:22)
[2021-08-01] MEDS: PANTOPRAZOLE SODIUM 40 MG/VIAL IV SCH (10:22)
[2021-08-01] MEDS: FOLIC ACID 1MG TABLET PO SCH (10:22)
[2021-08-01] MEDS: ZINC SULFATE 220 MG ( 50 ) CAPSULE PO SCH (10:22)
[2021-08-01] MEDS: THIAMINE HCL 100MG TABLET PO SCH (10:22)
[2021-08-01] MEDS: METOPROLOL TARTRATE 25MG TABLET PO SCH ×3 (10:23→18:10)
[2021-08-01] MEDS: MULTIVITAMINS,THER W-MINERALS TABLET PO SCH (10:51)
[2021-08-01] MEDS: LINEZOLID 600MG TABLET PO SCH (10:52)
[2021-08-01] MEDS ORDERED: LEVOFLOXACIN 500MG TABLET PO SCH (11:00)
[2021-08-01 12:00] VITALS: BP 113/69
[2021-08-01] MEDS ORDERED: MORPHINE SULFATE 2 MG/ML CPJ (NOT FOR IM USE) IV PRN (12:15)
[2021-08-01] MEDS ORDERED: NALOXONE HCL 0.4MG/ML VIAL IV PRN (12:30)
[2021-08-01] MEDS ORDERED: OXYBUTYNIN CHLORIDE 5MG TABLET PO SCH (14:00)
[2021-08-01 16:00] VITALS: BP 118/70
[2021-08-01 20:00] VITALS: BP 102/64
[2021-08-01] MEDS: OXYBUTYNIN CHLORIDE 5MG TABLET GT SCH (21:00)
[2021-08-01] MEDS: LINEZOLID 600MG TABLET GT SCH (21:01)
[2021-08-02] VITALS: BP 135/81
[2021-08-02 04:00] VITALS: BP 102/64
[2021-08-02] MEDS: SUCRALFATE 1 G/10 ML UDC GT SCH ×3 (05:35→18:18)
[2021-08-02] MEDS: OXYBUTYNIN CHLORIDE 5MG TABLET GT SCH ×3 (05:37→22:05)
[2021-08-02 06:31] LABS: HEMOGLOBIN 9.8 g/dL (14.0-18.0); MEAN CORPUSCULAR HEMOGLOBIN 27.7 pg (28.0-32.0); MEAN CORPUSCULAR VOLUME 81.5 fL (80.0-94.0); PLATELET 401 x1000/uL (130-400); RED BLOOD CELL COUNT 3.55 mill/uL (4.7-6.1); RED CELL DISTRIBUTION WIDTH 20.9 % (11.6-14.6)
[2021-08-02] MEDS: BLOOD SUGAR DIAGNOSTIC STRIP TEST SCH ×4 (07:31→21:00)
[2021-08-02] MEDS: INSULIN LISPRO 100 UNITS/ML SUBCUT SCH ×4 (07:50→21:00)
[2021-08-02 08:00] VITALS: BP 113/71
[2021-08-02] MEDS: ZINC SULFATE 220 MG ( 50 ) CAPSULE PO SCH (09:01)
[2021-08-02] MEDS: LINEZOLID 600MG TABLET GT SCH ×2 (09:01→22:05)
[2021-08-02] MEDS: METOPROLOL TARTRATE 25MG TABLET PO SCH ×3 (09:01→18:18)
[2021-08-02] MEDS: PANTOPRAZOLE SODIUM 40 MG/VIAL IV SCH (09:01)
[2021-08-02] MEDS: MULTIVITAMINS,THER W-MINERALS TABLET PO SCH (09:02)
[2021-08-02] MEDS: THIAMINE HCL 100MG TABLET GT SCH (09:02)
[2021-08-02] MEDS: FOLIC ACID 1MG TABLET PO SCH (09:03)
[2021-08-02] MEDS: ASCORBIC ACID 500 MG TABLET GT SCH (09:03)
[2021-08-02 12:00] VITALS: BP 116/71
[2021-08-02 16:00] VITALS: BP 115/66
[2021-08-02 20:00] VITALS: BP 111/72
[2021-08-02] MEDS: METOPROLOL TARTRATE 25MG TABLET GT SCH (22:06)
[2021-08-03] VITALS: BP 121/75
[2021-08-03] MEDS: SUCRALFATE 1 G/10 ML UDC GT SCH ×4 (00:31→17:09)
[2021-08-03 04:00] VITALS: BP 115/72
[2021-08-03] MEDS: OXYBUTYNIN CHLORIDE 5MG TABLET GT SCH ×3 (06:25→21:39)
[2021-08-03] MEDS: METOPROLOL TARTRATE 25MG TABLET GT SCH ×3 (06:25→21:38)
[2021-08-03] MEDS: BLOOD SUGAR DIAGNOSTIC STRIP TEST SCH ×4 (07:46→21:39)
[2021-08-03] MEDS: INSULIN LISPRO 100 UNITS/ML SUBCUT SCH ×4 (07:50→21:00)
[2021-08-03 08:00] VITALS: BP 115/69
[2021-08-03] MEDS: FOLIC ACID 1MG TABLET GT SCH (09:17)
[2021-08-03] MEDS: ZINC SULFATE 220 MG ( 50 ) CAPSULE GT SCH (09:17)
[2021-08-03] MEDS: ASCORBIC ACID 500 MG TABLET GT SCH (09:17)
[2021-08-03] MEDS: MULTIVITAMINS,THER W-MINERALS TABLET GT SCH (09:18)
[2021-08-03] MEDS: THIAMINE HCL 100MG TABLET GT SCH (09:18)
[2021-08-03] MEDS: LINEZOLID 600MG TABLET GT SCH ×2 (09:18→21:38)
[2021-08-03] MEDS: PANTOPRAZOLE SODIUM 40 MG/VIAL IV SCH (09:18)
[2021-08-03 12:00] VITALS: BP 122/78
[2021-08-03 16:00] VITALS: BP 115/69
[2021-08-03 20:00] VITALS: BP 112/72
[2021-08-04] VITALS: BP 112/69
[2021-08-04] MEDS: SUCRALFATE 1 G/10 ML UDC GT SCH ×4 (01:24→19:33)
[2021-08-04 04:00] VITALS: BP 123/73
[2021-08-04] MEDS: OXYBUTYNIN CHLORIDE 5MG TABLET GT SCH ×3 (06:15→21:18)
[2021-08-04] MEDS: METOPROLOL TARTRATE 25MG TABLET GT SCH ×3 (06:15→21:18)
[2021-08-04] MEDS: BLOOD SUGAR DIAGNOSTIC STRIP TEST SCH ×4 (06:34→21:18)
[2021-08-04] MEDS: INSULIN LISPRO 100 UNITS/ML SUBCUT SCH ×4 (07:10→21:00)
[2021-08-04 08:00] VITALS: BP 114/70
[2021-08-04] MEDS: THIAMINE HCL 100MG TABLET GT SCH (09:36)
[2021-08-04] MEDS: HYDROCODONE/ACETAMINOPHEN 5/325MG TABLET PO PRN ×2 (09:43→16:51)
[2021-08-04] MEDS: FOLIC ACID 1MG TABLET GT SCH (09:45)
[2021-08-04] MEDS: MULTIVITAMINS,THER W-MINERALS TABLET GT SCH (09:46)
[2021-08-04] MEDS: ASCORBIC ACID 500 MG TABLET GT SCH (09:47)
[2021-08-04] MEDS: ZINC SULFATE 220 MG ( 50 ) CAPSULE GT SCH (09:47)
[2021-08-04] MEDS: LINEZOLID 600MG TABLET GT SCH ×2 (09:47→21:18)
[2021-08-04 12:00] VITALS: BP 105/61
[2021-08-04 20:00] VITALS: BP 122/69
[2021-08-05] VITALS: BP 125/60
[2021-08-05] MEDS: SUCRALFATE 1 G/10 ML UDC GT SCH ×4 (00:53→17:26)
[2021-08-05 04:00] VITALS: BP 110/73
[2021-08-05] MEDS: METOPROLOL TARTRATE 25MG TABLET GT SCH ×3 (06:00→21:45)
[2021-08-05] MEDS: BLOOD SUGAR DIAGNOSTIC STRIP TEST SCH ×4 (06:21→20:48)
[2021-08-05] MEDS: OXYBUTYNIN CHLORIDE 5MG TABLET GT SCH ×3 (06:21→21:44)
[2021-08-05 06:46] LABS: CHLORIDE 105 mEq/L (98-107)
[2021-08-05] MEDS: INSULIN LISPRO 100 UNITS/ML SUBCUT SCH ×4 (06:52→21:00)
[2021-08-05 07:13] LABS: HEMATOCRIT 26.3 % (42.0-52.0); HEMOGLOBIN 8.7 g/dL (14.0-18.0); MEAN CORPUSCULAR HEMOGLOBIN 27.2 pg (28.0-32.0); MEAN CORPUSCULAR VOLUME 81.9 fL (80.0-94.0); PLATELET 310 x1000/uL (130-400); RED BLOOD CELL COUNT 3.21 mill/uL (4.7-6.1); RED CELL DISTRIBUTION WIDTH 20.9 % (11.6-14.6)
[2021-08-05 08:00] VITALS: BP 111/72
[2021-08-05] MEDS: MULTIVITAMINS,THER W-MINERALS TABLET GT SCH (09:34)
[2021-08-05] MEDS: ZINC SULFATE 220 MG ( 50 ) CAPSULE GT SCH (09:35)
[2021-08-05] MEDS: FOLIC ACID 1MG TABLET GT SCH (09:35)
[2021-08-05] MEDS: THIAMINE HCL 100MG TABLET GT SCH (09:35)
[2021-08-05] MEDS: ASCORBIC ACID 500 MG TABLET GT SCH (09:36)
[2021-08-05 12:00] VITALS: BP 120/70
[2021-08-05 16:00] VITALS: BP 131/79
[2021-08-05 20:00] VITALS: BP 146/96
[2021-08-06] VITALS: BP 155/86
[2021-08-06] MEDS: SUCRALFATE 1 G/10 ML UDC GT SCH ×4 (00:47→18:51)
[2021-08-06 04:00] VITALS: BP 130/79
[2021-08-06] MEDS: METOPROLOL TARTRATE 25MG TABLET GT SCH ×3 (06:19→22:12)
[2021-08-06] MEDS: OXYBUTYNIN CHLORIDE 5MG TABLET GT SCH ×3 (06:19→22:12)
[2021-08-06] MEDS: BLOOD SUGAR DIAGNOSTIC STRIP TEST SCH ×3 (06:25→21:00)
[2021-08-06] MEDS: INSULIN LISPRO 100 UNITS/ML SUBCUT SCH ×3 (06:54→22:15)
[2021-08-06 08:00] VITALS: BP 167/99
[2021-08-06] MEDS: ASCORBIC ACID 500 MG TABLET GT SCH (09:42)
[2021-08-06] MEDS: ZINC SULFATE 220 MG ( 50 ) CAPSULE GT SCH (09:42)
[2021-08-06] MEDS: THIAMINE HCL 100MG TABLET GT SCH (09:42)
[2021-08-06] MEDS: FOLIC ACID 1MG TABLET GT SCH (09:42)
[2021-08-06] MEDS: MULTIVITAMINS,THER W-MINERALS TABLET GT SCH (09:51)
[2021-08-06 12:00] VITALS: BP 178/98
[2021-08-06 16:00] VITALS: BP 139/79
[2021-08-06 20:00] VITALS: BP 121/73
[2021-08-06] MEDS ORDERED: DEXTROSE 50% WATER 50ML SYRINGE IV PRN (20:00)
[2021-08-07] VITALS (7 sets, daily range): BP systolic 121–169; BP diastolic 72–89
[2021-08-07] MEDS: SUCRALFATE 1 G/10 ML UDC GT SCH ×4 (01:04→18:24)
[2021-08-07] MEDS: METOPROLOL TARTRATE 25MG TABLET GT SCH ×3 (05:23→21:28)
[2021-08-07] MEDS: OXYBUTYNIN CHLORIDE 5MG TABLET GT SCH ×3 (05:23→21:28)
[2021-08-07] MEDS: BLOOD SUGAR DIAGNOSTIC STRIP TEST SCH ×4 (06:24→21:28)
[2021-08-07] MEDS: INSULIN LISPRO 100 UNITS/ML SUBCUT SCH ×4 (07:47→21:35)
[2021-08-07] MEDS: ZINC SULFATE 220 MG ( 50 ) CAPSULE GT SCH (08:49)
[2021-08-07] MEDS: MULTIVITAMINS,THER W-MINERALS TABLET GT SCH (08:49)
[2021-08-07] MEDS: ASCORBIC ACID 500 MG TABLET GT SCH (08:49)
[2021-08-07] MEDS: FOLIC ACID 1MG TABLET GT SCH (08:50)
[2021-08-07] MEDS: THIAMINE HCL 100MG TABLET GT SCH (08:50)
[2021-08-07] MEDS ORDERED: HYDRALAZINE 20MG/ML VIAL IV PRN (15:15)
[2021-08-07] MEDS ORDERED: HYDRALAZINE 10 MG in SODIUM CHLORIDE 0.9% 49.5 ML IV PRN (15:15)
[2021-08-07] MEDS: AMLODIPINE 2.5MG TABLET PO SCH (18:24)
[2021-08-08] VITALS: BP 131/77
[2021-08-08] MEDS: SUCRALFATE 1 G/10 ML UDC GT SCH ×4 (00:37→18:40)
[2021-08-08 04:00] VITALS: BP 120/70
[2021-08-08] MEDS: METOPROLOL TARTRATE 25MG TABLET GT SCH ×3 (05:23→21:18)
[2021-08-08] MEDS: OXYBUTYNIN CHLORIDE 5MG TABLET GT SCH ×3 (05:23→21:18)
[2021-08-08] MEDS: BLOOD SUGAR DIAGNOSTIC STRIP TEST SCH ×4 (07:20→21:18)
[2021-08-08] MEDS: INSULIN LISPRO 100 UNITS/ML SUBCUT SCH ×4 (07:50→21:00)
[2021-08-08 08:00] VITALS: BP 142/80
[2021-08-08] MEDS: MULTIVITAMINS,THER W-MINERALS TABLET GT SCH (09:22)
[2021-08-08] MEDS: ASCORBIC ACID 500 MG TABLET GT SCH (09:22)
[2021-08-08] MEDS: AMLODIPINE 2.5MG TABLET PO SCH (09:22)
[2021-08-08] MEDS: THIAMINE HCL 100MG TABLET GT SCH (09:22)
[2021-08-08] MEDS: FOLIC ACID 1MG TABLET GT SCH (09:22)
[2021-08-08 11:57] VITALS: BP 130/81
[2021-08-08] MEDS: SIMETHICONE 80MG TABLET CHEW PO PRN (12:29)
[2021-08-08 16:00] VITALS: BP 138/82
[2021-08-08] MEDS ORDERED: NALOXONE HCL 0.4MG/ML VIAL IV PRN (18:00)
[2021-08-08 20:00] VITALS: BP 151/81
[2021-08-09] VITALS: BP 124/73
[2021-08-09] MEDS: SUCRALFATE 1 G/10 ML UDC GT SCH ×4 (00:36→18:11)
[2021-08-09 04:00] VITALS: BP 157/72
[2021-08-09] MEDS: METOPROLOL TARTRATE 25MG TABLET GT SCH ×3 (05:43→21:14)
[2021-08-09] MEDS: SIMETHICONE 80MG TABLET CHEW PO PRN (05:43)
[2021-08-09] MEDS: OXYBUTYNIN CHLORIDE 5MG TABLET GT SCH ×3 (05:43→21:13)
[2021-08-09] MEDS: BLOOD SUGAR DIAGNOSTIC STRIP TEST SCH ×4 (06:07→20:37)
[2021-08-09 07:14] LABS: PROTHROMBIN TIME 10.7 sec (9.6-11.0)
[2021-08-09 07:17] LABS: CHLORIDE 105 mEq/L (98-107)
[2021-08-09 07:32] LABS: BASOPHILS % 0.4 % (0.0-2.0); EOSINOPHILS % 1.6 % (0.0-5.0); HEMATOCRIT. 27.8 % (42.0-52.0); LYMPHOCYTES % 10.3 % (20.0-50.0); MEAN CORPUSCULAR HEMOGLOBIN 26.7 pg (28.0-32.0); MEAN CORPUSCULAR VOLUME 82.5 fL (80.0-94.0); MEAN PLATELET VOLUME 7.7 fl (7.4-10.4); MONOCYTES % 7.7 % (2.0-8.0); PLATELET 287 x1000/uL (130-400); RED BLOOD CELL COUNT 3.37 mill/uL (4.7-6.1); RED CELL DISTRIBUTION WIDTH 21.1 % (11.6-14.6)
[2021-08-09] MEDS: INSULIN LISPRO 100 UNITS/ML SUBCUT SCH ×4 (07:50→20:38)
[2021-08-09 08:00] VITALS: BP 138/82
[2021-08-09] MEDS: FOLIC ACID 1MG TABLET GT SCH (09:19)
[2021-08-09] MEDS: ASCORBIC ACID 500 MG TABLET GT SCH (09:19)
[2021-08-09] MEDS: THIAMINE HCL 100MG TABLET GT SCH (09:19)
[2021-08-09] MEDS: AMLODIPINE 2.5MG TABLET PO SCH (09:20)
[2021-08-09 12:00] VITALS: BP 140/78
[2021-08-09 16:00] VITALS: BP 121/69
[2021-08-09] MEDS: METOCLOPRAMIDE HCL 10MG/2ML VIAL IV SCH ×2 (18:11→23:24)
[2021-08-09] MEDS: MORPHINE SULFATE 2 MG/ML CPJ (NOT FOR IM USE) IV PRN ×2 (18:42→23:26)
[2021-08-09 20:00] VITALS: BP 113/66
[2021-08-10] VITALS: BP 151/84
[2021-08-10] MEDS: CEFEPIME 2,000 MG in DEXT 5% WATER 100 ML IV SCH ×3 (03:25→18:00)
[2021-08-10] MEDS: MORPHINE SULFATE 2 MG/ML CPJ (NOT FOR IM USE) IV PRN ×3 (03:25→22:12)
[2021-08-10 04:00] VITALS: BP 135/68
[2021-08-10] MEDS: METOCLOPRAMIDE HCL 10MG/2ML VIAL IV SCH ×3 (06:25→18:01)
[2021-08-10] MEDS: METOPROLOL TARTRATE 25MG TABLET GT SCH ×3 (06:25→22:00)
[2021-08-10] MEDS: OXYBUTYNIN CHLORIDE 5MG TABLET GT SCH ×3 (06:25→22:12)
[2021-08-10] MEDS: BLOOD SUGAR DIAGNOSTIC STRIP TEST SCH ×4 (06:26→21:00)
[2021-08-10 07:21] LABS: HEMATOCRIT. 25.8 % (42.0-52.0); HEMOGLOBIN. 8.4 g/dL (14.0-18.0); MEAN CORPUSCULAR VOLUME 82.4 fL (80.0-94.0); MEAN PLATELET VOLUME 7.5 fl (7.4-10.4); PLATELET 279 x1000/uL (130-400); RED BLOOD CELL COUNT 3.13 mill/uL (4.7-6.1); RED CELL DISTRIBUTION WIDTH 21.4 % (11.6-14.6)
[2021-08-10] MEDS: INSULIN LISPRO 100 UNITS/ML SUBCUT SCH ×4 (07:50→21:00)
[2021-08-10 08:00] VITALS: BP 97/60
[2021-08-10 08:13] LABS: CHLORIDE 104 mEq/L (98-107)
[2021-08-10] MEDS: AMLODIPINE 2.5MG TABLET PO SCH (09:00)
[2021-08-10] MEDS: ASCORBIC ACID 500 MG TABLET GT SCH (09:15)
[2021-08-10] MEDS: THIAMINE HCL 100MG TABLET GT SCH (09:15)
[2021-08-10] MEDS: FOLIC ACID 1MG TABLET GT SCH (09:15)
[2021-08-10 12:00] VITALS: BP 151/79
[2021-08-10 16:00] VITALS: BP 136/74
[2021-08-10 16:25] LABS: HEMATOCRIT 25.2 % (42.0-52.0); HEMOGLOBIN 8.2 g/dL (14.0-18.0); MEAN CORPUSCULAR HEMOGLOBIN 26.7 pg (28.0-32.0); MEAN CORPUSCULAR VOLUME 82.3 fL (80.0-94.0); PLATELET 271 x1000/uL (130-400); RED BLOOD CELL COUNT 3.06 mill/uL (4.7-6.1); RED CELL DISTRIBUTION WIDTH 21.6 % (11.6-14.6)
[2021-08-10 20:00] VITALS: BP 103/60
[2021-08-11] VITALS (8 sets, daily range): BP systolic 104–142; BP diastolic 64–87
[2021-08-11] MEDS: METOCLOPRAMIDE HCL 10MG/2ML VIAL IV SCH ×5 (01:10→23:14)
[2021-08-11] MEDS: CEFEPIME 2,000 MG in DEXT 5% WATER 100 ML IV SCH ×3 (02:51→18:02)
[2021-08-11] MEDS: MORPHINE SULFATE 2 MG/ML CPJ (NOT FOR IM USE) IV PRN ×2 (02:52→06:22)
[2021-08-11 05:47] LABS: CHLORIDE 103 mEq/L (98-107)
[2021-08-11] MEDS: METOPROLOL TARTRATE 25MG TABLET GT SCH ×3 (06:00→21:39)
[2021-08-11] MEDS: BLOOD SUGAR DIAGNOSTIC STRIP TEST SCH ×4 (06:20→21:49)
[2021-08-11] MEDS: OXYBUTYNIN CHLORIDE 5MG TABLET GT SCH ×3 (06:21→21:39)
[2021-08-11 07:30] LABS: BASOPHILS % 0.4 % (0.0-2.0); EOSINOPHILS % 0.7 % (0.0-5.0); HEMATOCRIT. 23.5 % (42.0-52.0); HEMOGLOBIN. 7.7 g/dL (14.0-18.0); LYMPHOCYTES % 7.1 % (20.0-50.0); MEAN CORPUSCULAR VOLUME 81.9 fL (80.0-94.0); MEAN PLATELET VOLUME 8.1 fl (7.4-10.4); MONOCYTES % 7.8 % (2.0-8.0); PLATELET 264 x1000/uL (130-400); RED BLOOD CELL COUNT 2.87 mill/uL (4.7-6.1)
[2021-08-11] MEDS: INSULIN LISPRO 100 UNITS/ML SUBCUT SCH ×4 (07:40→21:00)
[2021-08-11] MEDS: ASCORBIC ACID 500 MG TABLET GT SCH (08:59)
[2021-08-11] MEDS: LINEZOLID 600MG TABLET PO SCH ×2 (08:59→21:38)
[2021-08-11] MEDS: THIAMINE HCL 100MG TABLET GT SCH (08:59)
[2021-08-11] MEDS: FOLIC ACID 1MG TABLET GT SCH (08:59)
[2021-08-11] MEDS: AMLODIPINE 2.5MG TABLET PO SCH (09:02)
[2021-08-11] MEDS ORDERED: THROAT LOZENGES-BENZOCAINE/MENTH/CETYLPYRD CL LOZENGES MM PRN ×2 (12:15)
[2021-08-11 14:53] LABS: PLATELET ESTIMATE NORMAL
== END 2021-08-11 23:57 | DRG 871 ==
LOC: ER 10:19 → MICUSO 14:00 → SUPCPDRO 15:55 → EDBEDREQSVC 16:26 → MICUNO 07-07 09:35 → 3WST 07-09 21:57 → 6EST 07-28 16:14
PROVIDERS: ADMIT Internal Medicine; ATTEND Internal Medicine
PROC: 30233N1 Transfusion of Nonautologous Red Blood Cells into Peripheral Vein, Percutaneous Approach (ICD-10-PCS; principal; 2021-07-06)
PROC: 02HV33Z Insertion of Infusion Device into Superior Vena Cava, Percutaneous Approach (ICD-10-PCS; 2021-07-06)
PROC: B548ZZA Ultrasonography of Superior Vena Cava, Guidance (ICD-10-PCS; 2021-07-06)
PROC: 30233R1 Transfusion of Nonautologous Platelets into Peripheral Vein, Percutaneous Approach (ICD-10-PCS; 2021-07-09)
PROC: 0DH63UZ Insertion of Feeding Device into Stomach, Percutaneous Approach (ICD-10-PCS; 2021-07-12)
PROC: 0DB58ZX Excision of Esophagus, Via Natural or Artificial Opening Endoscopic, Diagnostic (ICD-10-PCS; 2021-07-12)
PROC: 0DB78ZX Excision of Stomach, Pylorus, Via Natural or Artificial Opening Endoscopic, Diagnostic (ICD-10-PCS; 2021-07-12)
PROC: B5191ZA Fluoroscopy of Inferior Vena Cava using Low Osmolar Contrast, Guidance (ICD-10-PCS; 2021-07-13)
PROC: 06H03DZ Insertion of Intraluminal Device into Inferior Vena Cava, Percutaneous Approach (ICD-10-PCS; 2021-07-13)
DX: A41.51 Sepsis due to Escherichia coli [E. coli] (principal); K55.049 Acute infarction of large intestine, extent unspecified; E43 Unspecified severe protein-calorie malnutrition; R65.21 Severe sepsis with septic shock; D65 Disseminated intravascular coagulation [defibrination syndrome]; C18.9 Malignant neoplasm of colon, unspecified; E87.1 Hypo-osmolality and hyponatremia; G93.40 Encephalopathy, unspecified; N17.9 Acute kidney failure, unspecified; N32.1 Vesicointestinal fistula; N39.0 Urinary tract infection, site not specified; K22.10 Ulcer of esophagus without bleeding; B00.89 Other herpesviral infection; E87.0 Hyperosmolality and hypernatremia; I82.413 Acute embolism and thrombosis of femoral vein, bilateral; I82.432 Acute embolism and thrombosis of left popliteal vein; I47.1 Supraventricular tachycardia; J90 Pleural effusion, not elsewhere classified; K56.7 Ileus, unspecified; E87.2 Acidosis; A41.59 Other Gram-negative sepsis; D63.8 Anemia in other chronic diseases classified elsewhere; E83.51 Hypocalcemia; E86.0 Dehydration; E87.5 Hyperkalemia; I12.9 Hypertensive chronic kidney disease with stage 1 through stage 4 chronic kidney disease, or unspecified chronic kidney disease; N18.9 Chronic kidney disease, unspecified; N40.0 Benign prostatic hyperplasia without lower urinary tract symptoms; E11.65 Type 2 diabetes mellitus with hyperglycemia; E11.22 Type 2 diabetes mellitus with diabetic chronic kidney disease; E78.5 Hyperlipidemia, unspecified; F32.A Depression, unspecified; E11.649 Type 2 diabetes mellitus with hypoglycemia without coma; I27.20 Pulmonary hypertension, unspecified; K29.70 Gastritis, unspecified, without bleeding; K44.9 Diaphragmatic hernia without obstruction or gangrene; E78.1 Pure hyperglyceridemia; R74.8 Abnormal levels of other serum enzymes; D70.9 Neutropenia, unspecified; D50.0 Iron deficiency anemia secondary to blood loss (chronic); N32.89 Other specified disorders of bladder; N28.89 Other specified disorders of kidney and ureter; Z20.822 Contact with and (suspected) exposure to COVID-19; R13.12 Dysphagia, oropharyngeal phase; R74.01 Elevation of levels of liver transaminase levels; E80.6 Other disorders of bilirubin metabolism; I48.91 Unspecified atrial fibrillation; T83.038A Leakage of other urinary catheter, initial encounter; Y84.6 Urinary catheterization as the cause of abnormal reaction of the patient, or of later complication, without mention of misadventure at the time of the procedure; Y92.238 Other place in hospital as the place of occurrence of the external cause; Z92.21 Personal history of antineoplastic chemotherapy; Z95.2 Presence of prosthetic heart valve; Z68.22 Body mass index [BMI] 22.0-22.9, adult; Z88.0 Allergy status to penicillin; Z93.3 Colostomy status
CPT/HCPCS: 36415; 36600; 37191; 71045; 74018; 74176; 76700; 76857; 78580; 80048; 80053; 80061; 80076; 81003; 82105; 82248; 82270; 82330; 82375; 82378; 82550; 82553; 82607; 82728; 82805; 82962; 83036; 83540; 83550; 83605; 83735; 83880; 84100; 84134; 84145; 84439; 84443; 84484; 85014; 85018; 85025; 85027; 85044; 85049; 86301; 86850; 86900; 86920; 87077; 87106; 87186; 87426; 88305; 88312; 88313; 92610; 93005; 93306; 93970; 97110; 97116; 97163; 97530; 99291; A6261; C1769; C1880; C1887; C1893; C9113; J0692; J0696; J1200; J1815; J1940; J1956; J2250; J2270; J2370; J2543; J2765; J3010; J3370; J3480; J3490; J7030; J7040; J7060; P9016; P9034; Q9967; A4315